=== PATIENT | male | born 1975 | race Caucasian/White ===

== ENCOUNTER 2020-08-15 20:52 | Emergency (ER) | payer SELFPAY ==
[~2020-08-15] VITALS: Ht 167.6 cm; Wt 58.5 kg
[2020-08-15 21:18] VITALS: BP 128/85
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
--- NOTE | 2020-08-15 23:08 | NUR ---
ERMD AT BEDSIDE.
--- NOTE | 2020-08-15 23:32 | NUR ---
XRAY AT BEDSIDE.
--- NOTE | 2020-08-15 23:47 | NUR ---
ULTRASOUND AT BEDSIDE. PT PLACED IN GOWN.
--- NOTE | 2020-08-16 00:34 | NUR ---
Patient appears to be resting comfortably in bed. Vital Signs within normal limits. Respirations even and unlabored. PT DENIES PAIN AT THIS TIME.
[2020-08-16] MEDS ORDERED: CEPH-588 PO (01:12)
[2020-08-16 01:27] VITALS: BP 135/83
== END 2020-08-16 01:27 | disposition home or self-care (01) ==
LOC: MED 20:52
DX: S81.811A Laceration without foreign body, right lower leg, initial encounter (principal); L03.115 Cellulitis of right lower limb; W01.198A Fall on same level from slipping, tripping and stumbling with subsequent striking against other object, initial encounter; Y92.89 Other specified places as the place of occurrence of the external cause; Y93.89 Activity, other specified; Y99.8 Other external cause status
CPT/HCPCS: 73590; 73610; 93971; 99284